=== PATIENT | female | born 1970 | race Caucasian/White ===

== ENCOUNTER 2023-01-22 13:46 | Observation (INO) ==
--- NOTE | 2023-01-22 14:34 | ED Triage Note ---
Date of Service January 22, 2023 History of Present Illness This patient was briefly evaluated while in triage. An abbreviated physical exam was performed. This patient is a 52-year-old Female who presents to the ED for evaluation of hysterectomy on 01/09 - [facility] developed vaginal bleeding with clots in the shower this AM told to come here by surgeon cramping vaginal hysterectomy-ovaries/cervix taken as well nothing vaginally, no intercourse Physical Exam GENERAL: NAD CARDIOVASCULAR: RRR RESPIRATORY: CTA ABDOMEN: BS x 4. Nontender to palpation. Initial orders for labs and / or imaging were placed and patient was placed in the waiting area until a bed is available. Please see further documentation for the full ED course.
[2023-01-22 15:41] LABS: Basophils # (auto) 0.04 K/uL (0.00-0.20); Basophils % (auto) 0.3 %; Eosinophils # (auto) 0.39 K/uL (0.00-0.50); Eosinophils % (auto) 2.9 %; Hematocrit (blood only) 37.2 % (37.0-47.0); Hemoglobin 11.6 g/dl (12.0-16.0); Immature Granulocytes # (auto) 0.04 K/uL (0.01-0.20); Immature Granulocytes % (auto) 0.3 %; Lymphocytes # (auto) 1.73 K/uL (1.20-3.40); Lymphocytes % (auto) 12.7 %; Mean Corpuscular Hemoglobin 23.7 pg (25.0-34.0); Mean Corpuscular Hgb Conc 31.2 g/dL (32.0-36.0); Mean Corpuscular Volume 75.9 fL (80.0-100.0); Mean Platelet Volume 11.4 fL (9.4-12.4); Monocytes # (auto) 0.52 K/uL (0.11-0.59); Monocytes % (auto) 3.8 %; Neutrophils # (auto) 10.89 K/uL (1.40-6.50); Platelet Count 314 K/uL (130-400); RDW Coefficient of Variation 16.7 % (11.5-14.5); RDW Standard Deviation 45.3 fL (36.4-46.3); White Blood Count 13.61 K/ul (4.8-10.8)
[2023-01-22 15:55] LABS: Albumin Globulin Ratio 1.4 (0.9-2); Albumin Level 3.9 gm/dl (3.4-5.0); BUN Creatinine Ratio 31.6 (10-20); Bilirubin,Total 0.3 mg/dl (0.2-1.0); Calcium 8.9 mg/dl (8.6-10.3); Creatinine Clr Calc Pharmacy 163.1 ml/min; Est GFR (African American) 123.5 ml/min; Est GFR (Non-African American) 106.6 ml/min; Globulin 2.8 gm/dl (2.5-4.0); Potassium 4.2 mmol/L (3.5-5.1); Total Protein 6.7 gm/dl (6.0-8.3)
[2023-01-22 16:06] LABS: Partial Thromboplastin Time 27.3 Seconds (21.0-31.0); Prothrombin Time 10.6 Seconds (9.0-12.0)
[2023-01-22] MEDS ORDERED: OPTIRAY 320 500ml IV ONE (16:18)
--- NOTE | 2023-01-22 16:43 | CT Scan Report ---
CT OF THE ABDOMEN AND PELVIS WITH CONTRAST CLINICAL HISTORY: vaginal bleeding s/p hysterectomy 2 weeks ago COMPARISON STUDY: CT of the abdomen and pelvis June 04, 2022 and pelvic ultrasound August 17, 2022. TECHNIQUE: Following IV administration of 94 mL of Optiray, axial images of the abdomen and pelvis we re obtained from the lung bases to the proximal femurs. Images were reviewed in the axial, sagittal, and coronal planes. IV contrast was administered without complication. Automated exposure control wa s utilized for the study. A dose lowering technique was utilized adhering to the principles of ALARA . CT DOSE: 1535.53 mGy.cm FINDINGS: No pneumatosis, free air or portal venous gas is present. Hepatic steatosis is noted. The l iver is enlarged. There is no biliary or pancreatic ductal dilatation. Small gallstones within the ga llbladder are present. No evidence for acute cholecystitis. Size of the spleen is at the upper limits of normal. There is a moderate sized hiatal hernia. Adrenal glands, kidneys and pancreas are normal. There is no hydronephrosis. Dilatation of the left renal artery, measuring 1.5 cm is unchanged and C T of June 04, 2022. There are adjacent surgical clips. A small amount of perihepatic fluid is noted. There is also a small amount of fluid within the right paracolic gutter. There is trace perisplenic fluid and a small amount of fluid within the left paracolic gutter. Note is made of a 11 x 7.8 cm hyp erdensity along the vaginal cuff. The vaginal cuff is obscured by this suspected clot. Hyperdensity w ithin the vagina represents hemorrhage. No definite active extravasation is identified on this examin ation. No evidence for a bowel obstruction. There is colonic diverticulosis without evidence for acut e diverticulitis. Small amount of fluid within the umbilical hernia is present. IMPRESSION: Status post hysterectomy. 11 x 7.8 cm hyperdensity adjacent to the vaginal cuff consiste nt with hemorrhage. This obscures the vaginal cuff but the hemorrhage likely arises from the vaginal cuff. Overall, moderate hemoperitoneum within the pelvis and small amount of hemoperitoneum within th e abdomen. Surgical consultation is recommended. ACT 112: Negative or not required by law. Electronically signed by: Emir Cat M.D. 01/22/2023 4:41 PM
--- NOTE | 2023-01-22 16:52 | Emergency Department Note ---
Impression & Plan Vaginal bleeding, Post surgical complication ED Provider Note HISTORY OF PRESENT ILLNESS: Patient is a 52-year-old female presenting with vaginal bleeding. Patient had a hysterectomy on 01/09/2023 at [facility]. She states that she had her 2- week postop visit today in the clinic. While she was showering getting ready to go to her visit, she states that she started having bright red bloody vaginal bleeding and passing large clots while in the shower. She states she has been bleeding through multiple pads an hour over the last few hours. She did feel slightly dizzy earlier but is feeling okay right now. She reports that her pelvis and lower abdomen feels very bloated and full. She is on an aspirin daily but no other anticoagulation. Reports that she has multiple pads on currently and believes she soaked through them again. She denies any chest pain or shortness of breath. Denies any nausea or vomiting. States she been doing well up until today. ROS: as above PHYSICAL EXAM: Constitutional: Patient appears in no acute distress. HENT: Head: Normocephalic and atraumatic. Eyes: EOMI, PERRL Mouth/Throat: Mucous membranes moist. Neck: Trachea midline. Neck supple. Cardiovascular: RRR, No murmurs, rubs or gallops. Intact distal pulses. Pulmonary/Chest: No respiratory distress. Breath sounds clear and equal bilaterally. No wheezes or rales. Abdominal: Abdomen soft, no tenderness, rebound or guarding. Musculoskeletal: No edema, tenderness or deformity noted. Skin: Warm and dry. No rash, erythema, pallor or cyanosis Psychiatric: Appropriate mood and affect for situation. Neurological: Alert and keenly responsive. CN II-XII grossly intact, moving all extremities equally and fully. MDM: - Vitals signs showed hypertension - History obtained via patient. Patient presents with heavy vaginal bleeding. Patient is 2 weeks postop from a total hysterectomy. She was to have her 2-week postop visit today when she started having heavy vaginal bleeding spontaneously in the shower. States that she has been bleeding through multiple pads an hour and passing large clots. She is on aspirin daily. - Chronic conditions affecting care: HTN; depression/anxiety - Differential diagnoses include, but are not limited to: [] - Order placed for continuous cardiac monitoring. At this time, monitor showed rate of 90 bpm with normal sinus rhythm, per my interpretation. - External medical records reviewed. Showed [EMS sheet, outpt notes, outpt imaging] - Laboratory workup interpreted by myself showed slight leukocytosis (WBC 13.61); slight anemia (Hgb 11/6); stable electrolytes - CT abdomen/pelvis with IV contrast showed 11 x 7.8 cm hyperdensity adjacent to the vaginal cuff consistent with hemorrhage. Concern for hemorrhage arising from the vaginal cuff. Moderate hemoperitoneum within the pelvis. - Discussed case with [facility] historic preservationist, Dr. Burroughs at 17:01. He is coming to see the patient currently. He did an evaluation and thinks that the bleeding has stopped. Plans to admit for repeat H&H and further monitoring - Patient admitted to OB service for further evaluation and management. ASSESSMENT AND PLAN: Diagnosis: Vaginal bleeding; post surgical complication Plan: Admit Past Med/Surg History Medical History (Updated 01/22/23 @ 18:17 by Mindi Pereira MD) Hx of gastric ulcer Irritable bowel syndrome diarrhea History of COVID-19 01/2021 > symptoms at time: fatigue, cough, aches > resolved Herpes genitalia Umbilical hernia Osteoarthritis Chronic back pain GERD (gastroesophageal reflux disease) Anxiety Depression Postconcussion syndrome 2018 > Post-concussive syndrome with persistent difficulty with executive function > follows with [facility] neurology (last seen 03/13/21) Migraine Hypertension Restless legs syndrome Fibromuscular dysplasia of renal artery Surgical History (Updated 10/02/22 @ 12:21 by Yesica Hinds MD) S/P laparoscopic procedure x2 - reports laparoscopy for endo by Dr. Kovacs in , dx laparoscopy 09/2022 History of esophagogastroduodenoscopy (EGD) S/P endometrial ablation S/P wisdom tooth extraction Hx of colonoscopy History of bilateral tubal ligation History of section x3 1995,2002,2003 History of cystoscopy S/P renal artery angioplasty right History of kidney surgery renal artery bypass (left) 2000 History of tonsillectomy S/P total knee arthroplasty bilateral S/P dilatation and curettage Family History Mother Diabetes Anxiety Hypertension Deep vein thrombosis Father Hypertension Grandmother (Paternal) Colorectal cancer Other No family history of adverse response to anesthesia Denies family history of Ovarian cancer Breast cancer Uterine cancer Social History Smoking Status: Current every day smoker Tobacco Type: E-cigarettes / Vaping Second Hand Exposure: No; Do You Dip or Chew Tobacco: No; Hx Alcohol Use: Yes Alcohol type: wine Alcohol Intake Frequency Comment: socially Hx Substance Use: No Preferred Language: Puerto Rican Communication Ability: Effective Visual Impairment: No Limitations Heel Burnisher Required: No Beliefs That Will Affect Care: None marital status: Current Living Situation: Family current occupational status: employed How many Children do You have: 3 Feels Safe at Home: Yes during the past year weight has: increased > 10 lbs Assistive Devices: Glasses Allergies Allergies Allergy/AdvReac Type Severity Reaction Status Date / Time No Known Allergies Allergy Verified 01/22/23 17:35 Home Meds Home Medications Medication Instructions Recorded Confirmed aspirin 81 mg tablet,delayed 81 mg PO DAILY 12/14/22 01/22/23 release ibuprofen 200 mg tablet 600 mg PO DIRECTED PRN Pain 01/22/23 01/22/23 Previous Rx's Medication Instructions Recorded multivitamin (Multiple Vitamins 1 tab PO DAILY #30 tabs 07/31/18 tablet) furosemide 20 mg tablet (Lasix) 20 mg PO BID PRN edema #180 tabs 10/27/20 methocarbamol 500 mg tablet 500 mg PO BID PRN pain 30 days #60 08/14/21 tabs ferrous sulfate 325 mg (65 mg 325 mg PO DAILY #90 tabs 11/27/21 iron) tablet (iron) potassium chloride 8 mEq 8 meq PO QAM #90 tabs 11/27/21 tablet,extended release (Klor-Con) dextroamphetamine-amphetamine ER 20 mg PO DAILY #30 caps 02/27/22 20 mg 24hr capsule,extend release (Adderall XR) omeprazole 40 mg capsule,delayed 40 mg PO HS #30 caps 06/25/22 release valsartan 160 1 tab PO QAM #90 tabs 09/24/22 mg-hydrochlorothiazide 25 mg tablet escitalopram oxalate 10 mg tablet 10 mg PO QAM #90 tabs 09/25/22 (Lexapro) ondansetron HCl 4 mg tablet 4 mg PO Q8H PRN ibs #20 tabs 12/14/22 pramipexole 0.5 mg tablet 0.5 mg PO TID #90 tabs 12/17/22 bupropion HCl 300 mg 24 hr tablet, 300 mg PO QAM #30 tabs 01/09/23 extended release (Wellbutrin XL) clonazepam 1 mg tablet (Klonopin) 1 mg PO TID #90 tabs 01/13/23 hydrocodone 5 mg-acetaminophen 325 1 tab PO Q6H PRN pain #120 tabs 01/21/23 mg tablet Results & Data (ED) Vital Signs Vital Signs - 24 hr 01/22/23 14:32 01/22/23 15:35 Temperature 36.8 C Temperature Source Temporal Artery Scan Pulse Rate 88 Pulse Rate [Right Finger] 88 Respiratory Rate 18 16 Respiratory Effort / Characteristics Non-Labored Spontaneous Non-Labored Respiratory Depth Normal Normal Respiratory Pattern Regular Blood Pressure 193/120 H Blood Pressure [Left Radial Artery] 150/90 H Blood Pressure Mean 144 Blood Pressure Mean [Left Radial Artery] 110 Blood Pressure Position Sitting Pulse Oximetry 97 94 Oxygen Delivery Method Room Air Room Air Sepsis Recent Fever Within 48 Hours No Sepsis New/Unexplained Change in Mental Status No Sepsis Action Taken by Nursing No Action Required Laboratory Data 01/22/23 15:08 01/22/23 15:08 Lab Results 01/22/23 01/22/23 Range/Units 15:08 15:09 WBC 13.61 H (4.8-10.8) K/ul RBC 4.90 (4.20-5.40) M/uL Hgb 11.6 L (12.0-16.0) g/dl Hct 37.2 (37.0-47.0) % MCV 75.9 L (80.0-100.0) fL MCH 23.7 L (25.0-34.0) pg MCHC 31.2 L (32.0-36.0) g/dL RDW Std Deviation 45.3 (36.4-46.3) fL RDW Coeff of Ravi 16.7 H (11.5-14.5) % Plt Count 314 (130-400) K/uL MPV 11.4 (9.4-12.4) fL Immature Gran % (Auto) 0.3 % Neut % (Auto) 80.0 % Lymph % (Auto) 12.7 % [place] % (Auto) 3.8 % Eos % (Auto) 2.9 % Baso % (Auto) 0.3 % Neut # (Auto) 10.89 H (1.40-6.50) K/uL Lymph # (Auto) 1.73 (1.20-3.40) K/uL [place] # (Auto) 0.52 (0.11-0.59) K/uL Eos # (Auto) 0.39 (0.00-0.50) K/uL Baso # (Auto) 0.04 (0.00-0.20) K/uL Immature Gran # (Auto) 0.04 (0.01-0.20) K/uL PT 10.6 (9.0-12.0) Seconds INR 1.0 (0.9-1.1) APTT 27.3 (21.0-31.0) Seconds PTT Ratio 1.0 Sodium 139 (136-145) mmol/L Potassium 4.2 (3.5-5.1) mmol/L Chloride 107 (98-107) mmol/L Carbon Dioxide 25 (21-32) mmol/L Anion Gap 7 (3-11) BUN 18 (6-23) mg/dl Creatinine 0.57 L (0.6-1.2) mg/dl Est Cr Clr Drug Dosing 163.1 ml/min Est GFR ( Amer) 123.5 ml/min Est GFR (Non-Af Amer) 106.6 ml/min BUN/Creatinine Ratio 31.6 H (10-20) Glucose 100 H (70-99(Fasting)) mg/dl Calcium 8.9 (8.6-10.3) mg/dl Total Bilirubin 0.3 (0.2-1.0) mg/dl AST 14 (13-39) U/L ALT 15 (7-52) U/L Alkaline Phosphatase 64 (34-104) U/L Total Protein 6.7 (6.0-8.3) gm/dl Albumin 3.9 (3.4-5.0) gm/dl Globulin 2.8 (2.5-4.0) gm/dl Albumin/Globulin Ratio 1.4 (0.9-2) Blood Type A Positive Antibody Screen NEGATIVE Administered Medications Discontinued Medications Ioversol (Optiray 320 500ml) 94 ml IV ONCE ONE Stop: 01/22/23 16:19 Last Admin: 01/22/23 16:19 Dose: 94 ml Documented By: EMELY Imaging Data Radiologist's Impression: Abdomen/Pelvis CT 01/22/23 14:34 CT OF THE ABDOMEN AND PELVIS WITH CONTRAST CLINICAL HISTORY: vaginal bleeding s/p hysterectomy 2 weeks ago COMPARISON STUDY: CT of the abdomen and pelvis June 04, 2022 and pelvic ultrasound August 17, 2022. TECHNIQUE: Following IV administration of 94 mL of Optiray, axial images of the abdomen and pelvis were obtained from the lung bases to the proximal femurs. Images were reviewed in the axial, sagittal, and coronal planes. IV contrast was administered without complication. Automated exposure control was utilized for the study. A dose lowering technique was utilized adhering to the principles of ALARA. CT DOSE: 1535.53 mGy.cm FINDINGS: No pneumatosis, free air or portal venous gas is present. Hepatic steatosis is noted. The liver is enlarged. There is no biliary or pancreatic ductal dilatation. Small gallstones within the gallbladder are present. No evidence for acute cholecystitis. Size of the spleen is at the upper limits of normal. There is a moderate sized hiatal hernia. Adrenal glands, kidneys and pancreas are normal. There is no hydronephrosis. Dilatation of the left renal artery, measuring 1.5 cm is unchanged and CT of June 04, 2022. There are adjacent surgical clips. A small amount of perihepatic fluid is noted. There is also a small amount of fluid within the right paracolic gutter. There is trace perisplenic fluid and a small amount of fluid within the left paracolic gutter. Note is made of a 11 x 7.8 cm hyperdensity along the vaginal cuff. The vaginal cuff is obscured by this suspected clot. Hyperdensity within the vagina represents hemorrhage. No definite active extravasation is identified on this examination. No evidence for a bowel obstruction. There is colonic diverticulosis without evidence for acute diverticulitis. Small amount of fluid within the umbilical hernia is present. IMPRESSION: Status post hysterectomy. 11 x 7.8 cm hyperdensity adjacent to the vaginal cuff consistent with hemorrhage. This obscures the vaginal cuff but the hemorrhage likely arises from the vaginal cuff. Overall, moderate hemoperitoneum within the pelvis and small amount of hemoperitoneum within the abdomen. Surgical consultation is recommended. ACT 112: Negative or not required by law. Electronically signed by: Emir Cat M.D. 01/22/2023 4:41 PM Discharge Plan Visit Data Chief Complaint: Vaginal Bleeding Stated Complaint: HISTARECTAMI, BLOOD CLOTTING ED Provider: Mindi Pereira Discharge Problem: Vaginal bleeding, Post surgical complication Forms Stand Alone Forms: [facility] [employer] Prescriptions Prescriptions: No Action multivitamin [Multiple Vitamins] tablet 1 tab PO DAILY Qty: 30 0RF methocarbamol 500 mg tablet 500 mg PO BID PRN (Reason: pain) 30 Days Qty: 60 3RF ferrous sulfate [iron] 325 mg (65 mg iron) tablet 325 mg PO DAILY Qty: 90 1RF potassium chloride [Klor-Con 8] 8 mEq tablet extended release 8 meq PO QAM Qty: 90 1RF dextroamphetamine-amphetamine [Adderall XR] 20 mg capsule,extended release 24hr 20 mg PO DAILY Qty: 30 0RF omeprazole 40 mg capsule,delayed release(DR/EC) 40 mg PO HS Qty: 30 5RF valsartan-hydrochlorothiazide 160-25 mg tablet 1 tab PO QAM Qty: 90 0RF escitalopram oxalate [Lexapro] 10 mg tablet 10 mg PO QAM Qty: 90 1RF pramipexole 0.5 mg tablet 0.5 mg PO TID Qty: 90 2RF bupropion HCl [Wellbutrin XL] 300 mg tablet extended release 24 hr 300 mg PO QAM Qty: 30 1RF clonazepam [Klonopin] 1 mg tablet 1 mg PO TID Qty: 90 0RF hydrocodone-acetaminophen 5-325 mg tablet 1 tab PO Q6H PRN (Reason: pain) Qty: 120 0RF Rx Instructions: ok to fill on 12/21/22 furosemide [Lasix] 20 mg tablet 20 mg PO BID PRN (Reason: edema) Qty: 180 0RF aspirin 81 mg tablet,delayed release (DR/EC) 81 mg PO DAILY ondansetron HCl 4 mg tablet 4 mg PO Q8H PRN (Reason: ibs) Qty: 20 0RF ibuprofen 200 mg Tablet 600 mg PO DIRECTED PRN (Reason: Pain) Referrals Referrals: Kartik Jordan DO [Primary Care Provider] -
[2023-01-22 18:48] LABS: Appearance Urine Clear (Clear); Bacteria Urine Automated Negative (Negative); Bilirubin Urine Negative (Negative); Blood Urine Trace (Negative); Color Urine Yellow; Glucose Urine UA Negative (Negative); Ketones Urine Negative (Negative); Leukocyte Esterase Urine Negative (Negative); Nitrite Urine Negative (Negative); Protein Urine Negative (Negative); Specific Gravity Urine > 1.045 (1.000-1.030); Urobilinogen Urine Negative (Negative)
[2023-01-22] MEDS ORDERED: HYDROCODONE/ACETAMOPHEN 5/325MG TAB PO PRN (21:12)
[2023-01-22] MEDS ORDERED: FUROSEMIDE 20 MG TAB PO PRN (21:12)
[2023-01-22] MEDS ORDERED: PANTOprazole 40 MG TAB PO SCH (21:30)
[2023-01-22 21:36] LABS: Hematocrit (blood only) 34.1 % (37.0-47.0); Hemoglobin 10.5 g/dl (12.0-16.0); Mean Corpuscular Hemoglobin 24.1 pg (25.0-34.0); Mean Corpuscular Hgb Conc 30.8 g/dL (32.0-36.0); Mean Corpuscular Volume 78.2 fL (80.0-100.0); Mean Platelet Volume 11.2 fL (9.4-12.4); Platelet Count 286 K/uL (130-400); RDW Coefficient of Variation 16.6 % (11.5-14.5); RDW Standard Deviation 46.7 fL (36.4-46.3); Red Blood Count 4.36 M/uL (4.20-5.40); White Blood Count 11.16 K/ul (4.8-10.8)
[2023-01-22] MEDS ORDERED: POLYETHYLENE (MIRALAX) 17 GM PACK PO PRN (21:55)
--- OUTSIDE RECORDS SUMMARY | 2023-01-22 21:55 | External Medical Summary | Summary of Care ---
Author Name Unknown Organization [facility] Address [address] [place] [address] Phone [phone] Care Team Providers Care Manager Fitness Name Role Phone Kartik Jordan Primary Care Provider [phone] Reason for Visit * Reason Comments Outpatient Testing Encounter Details Date Type Department Care Team ([facility] st Contact Info) Description 01/07/2023 3:50 PM EST Laboratory Laboratory, [place] [address] [place] [address] [id number] Hemorrhage in uterus*; Other specified pre-operative examination Allergies No known active allergiesdocumented as of this encounter (statuses as of 01/07/2023) Medications Medication Sig Dispensed Refills Start Date End Date Status famotidine (PEPCID) 20 MG Tablet 20 mg 2 times a day. 0 Active Multiple Vitamins TABS Take by mouth daily. 0 Active ferrous sulfate (FEOSOL) 325 (65 FE) MG Tablet Take 1 Tab by mouth daily. Do not get the generic or delayed release tablets 0 09/10/2016 Active traZODone (DESYREL) 50 MG TabletIndications:Marilou ariella insomnia Take 1 Tab by mouth at bedtime. 30 Tab 3 09/14/2016 Active buPROPion XL (WELLBUTRIN XL) 300 MG [id number]:Recur rent major depressive disorder, in full remission (HCC) Take 1 Tab by mouth daily. 90 Tab 1 02/05/2017 Active Valsartan-Hydrochloro thiazide 160-25 MG per tablet Take 1 Tab by mouth daily. 90 Tab 1 02/05/2017 Active clonazePAM (KLONOPIN) 1 MG Tablet TAKE 1 TABLET, BY MOUTH, THREE TIMES DAILY NEEDED FOR ANXIETY. 30 Tab 0 03/11/2017 Active Meloxicam 7.5 MG Tablet Take one tablet by mouth daily with food. Start after 14 day supply of 15 mg is completed. 30 Tab 1 03/28/2017 Active Aspirin 81 MG Tablet Take 81 mg by mouth daily. 0 Active Diclofenac Sodium (VOLTAREN) 1 % gel Place 4 g topically on the skin 4 times a day. 3 Tube 3 04/30/2018 Active Omeprazole 40 MG Oral Capsule Delayed Release (PriLOSEC) TAKE 1 TABLET BY MOUTH AT BEDTIME 30 Capsule 0 02/26/2022 Active Amphetamine-Dextroamp het ER 20 MG Oral Capsule Extended Release 24 Hour (Adderall XR) take 1 capsule by mouth once daily 30 Capsule 0 02/27/2022 Active Diclofenac Potassium 50 MG Oral Tablet 50 mg orally twice a day 60 Tablet 0 03/02/2022 Active Topiramate 25 MG Oral Capsule Sprinkle (topAMAX SPRINKLE) take 1 capsule twice a day 60 Capsule 3 03/06/2022 Active Omeprazole 40 MG Oral Capsule Delayed Release (PriLOSEC) TAKE 1 CAPSULE BY MOUTH DAILY AT BEDTIME. 30 Capsule 5 03/26/2022 Active Pramipexole Dihydrochloride 0.5 MG Oral Tablet (Mirapex) 0.5 MG (1 tablet) by mouth three times a day 90 Tablet 2 03/26/2022 Active Pramipexole Dihydrochloride 0.5 MG Oral Tablet (Mirapex) Take 0.5 MG (1 tablet) by mouth three times a day 90 Tablet 2 04/27/2022 Active Azithromycin 250 MG Oral Tablet (Zithromax) TAKE 2 TABLETS BY MOUTH ON DAY 1 ( 500 MG ) THEN 1 TABLET ( 250 MG ) DAILY FOR 4 DAYS 6 Tablet 0 05/08/2022 Active Valsartan-hydroCHLORO thiazide 160-25 MG Oral Tablet Take 1 TAB by mouth daily in the morning 90 Tablet 0 05/26/2022 Active buPROPion HCl ER (XL) 300 MG Oral Tablet Extended Release 24 Hour (Wellbutrin XL) Take 1 tablet orally daily in the morning 30 Tablet 0 06/25/2022 Active Omeprazole 40 MG Oral Capsule Delayed Release (PriLOSEC) Take 1 capsule by [facility] at bedtime. 30 Capsule 5 06/25/2022 Active Pramipexole Dihydrochloride 0.5 MG Oral Tablet (Mirapex) Take 1 tablet by mouth three times a day 90 Tablet 2 06/25/2022 Active oxyCODONE HCl 5 MG Oral Tablet (Oxy IR) Take 1 tablet by mouth every 6 hours as needed for pain. 10 Tablet 0 09/17/2022 Active Pramipexole Dihydrochloride 0.5 MG Oral Tablet (Mirapex) 0.5 MG (1 tablet) orally three times a day 90 Tablet 2 09/20/2022 Active buPROPion HCl ER (XL) 300 MG Oral Tablet Extended Release 24 Hour (Wellbutrin XL) Take 1 tablet orally daily in the morning 30 Tablet 1 09/24/2022 Active Valsartan-hydroCHLORO thiazide 160-25 MG Oral Tablet Take 1 tablet orally daily in the morning 90 Tablet 0 09/24/2022 Active clonazePAM 1 MG Oral Tablet (KlonoPIN) Take 1 tablet orally three times a day 60 Tablet 1 09/24/2022 Active Escitalopram Oxalate 10 MG Oral Tablet (Lexapro) TAKE 1 TABLET BY MOUTH DAILY IN THE MORNING. 90 Tablet 1 09/25/2022 Active Nitrofurantoin Monohyd Macro 100 MG Oral Capsule (Macrobid) 100 mg (1 capsule) orally twice a day must administer with a meal/food 14 Capsule 0 10/31/2022 Active clonazePAM 1 MG Oral Tablet (KlonoPIN) TAKE 1 TABLET BY MOUTH THREE TIMES DAILY. 10 Tablet 0 12/04/2022 Active Ondansetron HCl 4 MG Oral Tablet (Zofran) Take 4 mg orally every 8 hours As Needed for ibs 20 Tablet 0 12/14/2022 Active clonazePAM 1 MG Oral Tablet (KlonoPIN) Take 1 tablet by mouth three times a day 90 Tablet 0 12/14/2022 Active HYDROcodone-Acetamino phen 5-325 MG Oral Tablet Take 1 tablet by mouth every 6 hours As Needed for pain; ok to fill on 12/21/22 120 Tablet 0 12/14/2022 Active Pramipexole Dihydrochloride 0.5 MG Oral Tablet (Mirapex) TAKE 1 TABLET BY MOUTH 3 TIMES A DAY 90 Tablet 2 12/17/2022 Active documented as of this encounter (statuses as of 01/07/2023) Active Problems Problem Noted Date Diagnosed Date Uterine bleeding 01/07/2023 Status post total bilateral knee replacement 03/2016 Anxiety 09/15/2016 Recurrent major depressive disorder, in full rem ission 09/15/2016 HTN, goal below 140/90 09/15/2016 Primary insomnia 09/15/2016 Primary osteoarthritis of left knee 09/15/2016 Hyperlipidemia with target LDL less than 130 S/P renal artery angioplasty 09/02/2002 documented as of this encounter (statuses as of 01/07/2023) Resolved Problems Problem Noted Date Diagnosed Date Resolved Date Encounter for supervision of other normal 04/28/2003 05/18/2003 Overview: ICD-10 update of inactive term Supervision of other high-risk 03/23/2003 08/04/2003 Overview: ICD-10 update of inactive term Encounter for supervision of other normal 08/18/2002 10/01/2002 Overview: ICD-10 update of inactive term documented as of this encounter (statuses as of 01/07/2023) Immunizations Name Administration Dates Next Due Seasonal Influenza, Quadrivalent, No Preserve, I M 02/21/2017 Seasonal Influenza, Split, IIV3, With Preserve, Inj 01/23/2016,01/10/2015 documented as of this encounter Social History Tobacco Use Types Packs/Day Years Used Date Smoking Tobacco: Former Smokeless Tobacco: Never Comments:quit 2001 Alcohol Use Standard Drinks/Week Comments Yes 0 (1 standard drink = 0.6 oz pur e alcohol) occasionally Sex and Gender Information Value Date Recorded Sex Assigned at Not on file Gender Identity Not on file Sexual Orientation Not on file Job Start Date Occupation Industry Not on file Not on file Not on file documented as of this encounter Functional Status Functional Status Response Date of Assess ment Are you deaf or do you have serious difficulty h earing? No 11/13/2016 Are you blind or do you have serious difficulty seeing, even when wearing glasses? No 11/13/2016 Do you have serious difficul ty walking or climbing stairs? (5 years old or older) No 11/13/2016 Do you have difficulty dress ing or bathing? (5 years old or older) No 11/13/2016 Because of a physical, menta l, or emotional condition, do you have difficulty doing errands alone such as visiting a doctor s office or shopping? (15 years old or older) No 11/14/19 17 Cognitive Status Response Date of Assessm ent Because of a physical, menta l, or emotional condition, do you have serious difficulty concentrating, remembering, or making decisions? (5 years old or older) No 11/13/2016 documented as of this encounter Plan of Treatment Pending Results Name Type Priority Associated Diagnoses Date /Time TYPE AND SCREEN Lab Routine Hemorrhage in uterus Other specified pre-operative examination 01/07/2023 4:11 PM EST CBC Lab Routine Hemorrhage in uterus Other specified pre-operative examination 01/07/2023 4:11 PM EST COMPREHENSIVE METABOLIC PANEL Lab Routine Hemorrhage in uterus Other specified pre-operative examination 01/07/2023 4:11 PM EST BETA-HCG, QUANTITATIVE Lab Routine Hemorrhage in uterus Other specified pre-operative examination 01/07/2023 4:11 PM EST Scheduled Orders Name Type Priority Associated Diagnoses Orde r Schedule TYPE AND SCREEN Lab Routine Hemorrhage in uterus Other specified pre-operative examination Expected: 01/07/2023, Expires: 01/08/2024 CBC Lab Routine Hemorrhage in uterus Other specified pre-operative examination Expected: 01/07/2023, Expires: 01/08/2024 COMPREHENSIVE METABOLIC PANEL Lab Routine Hemorrhage in uterus Other specified pre-operative examination Expected: 01/07/2023, Expires: 01/08/2024 BETA-HCG, QUANTITATIVE Lab Routine Hemorrhage in uterus Other specified pre-operative examination Expected: 01/07/2023, Expires: 01/08/2024 Health Maintenance Due Date Last Done Comments Hepatitis B (1 of 3 - 3-dose series) 1970 COVID-19 Vaccine (#1) 06/30/1971 HIV Screening 1985 Albumin/Creatinine Ratio 1988 DTaP,Tdap,and Td Vaccines (1 - Tdap) 1989 HPV/Co-Test 2000 Cervical Cancer Screening 05/17/2006 Pap Smear 05/17/2006 05/18/2003 Mammogram 2010 Cologuard 12/31/2015 Colonoscopy 12/31/2015 Colorectal Cancer Screening 12/31/2015 Fecal Occult Blood Test 12/31/2015 Sigmoidoscopy 12/31/2015 Depression Screening 10/26/2017 10/26/2016 GFR 11/13/2017 11/13/2016, 09/26, 03/26/2015, Additional history exists Lipid Panel 01/05/2020 01/04/2015 Zoster Vaccines (1 of 2) 2020 Influenza Vaccine (FLU shot) (#1) 2022 02/21/2017, 01/23/2016, 01/10/2015 Hepatitis C Screening Completed 02/23/2003, 003 GARDASIL-HPV IMMUNIZATION SERIES Aged Out No longer eligible based on patient's age to complete this topic MENINGOCOCCAL (MENACTRA/MENVEO) Aged Out No longer eligible based on patient's age to complete this topic Pneumococcal Vaccine: Pediatrics (0 to 5 Years) and At-Risk Patients (6 to 64 Years) Aged Out No longer eligible based on patient's age to complete this topic documented as of this encounter Medical Devices Implanted Type Area Fabric Worker Fitter Device Identifier Shelf Expiration Date Model / Serial / Lot Cement Bone R 1112-140-01 - [id number] Implanted:Qty: 1 on 03/29/2015 by Laci Crystal MD at OR [facility] Right: Knee [employer] 06/25/2019 00-1112-14 0-01 / / Knee Triathlon Ps Stb Bead 4 L - [id number] Implanted:Qty: 1 on 11/13/2016 by Laci Crystal MD at OR [facility] Left: Knee SUSAN : ORTHOPAEDICS 11/22/2019 5516-F-401 / / [id number] Description:TRIATHLON ENROLLMENT SPECIALIST IOR STABILIZED FEMORAL; SIZE- 4, SIDE-LEFT, TYPE-PS documented as of this encounter Visit Diagnoses Diagnosis Hemorrhage in uterus- Primary Hematometra Other specified pre-operative examination documented in this encounter Advance Directives Latest Code Status on File Code Status Date Activated Date Inactivated Comments Full Code 11/13/2016 10:45 AM 11/15/2016 3:02 PM . Question Answer Comments Discussion of Advance Direct tiana occurred with: Not Discussed Code Status History Code Status Date Activated Date Inactivated Comments Full Code 03/29/2015 10:14 AM 03/31/2015 6:07 PM . Question Answer Comments Discussion of Advance Direct tiana occurred with: Not Discussed Care Teams Manager Fitness Relationship Specialty Start Date End Date Kartik Jordan DO PCP - General Family Medicine 07/01/17 documented as of this encounter
--- OUTSIDE RECORDS SUMMARY | 2023-01-22 21:55 | External Medical Summary | Summary of Care ---
Author Name Unknown Organization [facility] Address [address] [place] [address] Phone [phone] Care Team Providers Care Dining Room Maid Name Role Phone JulianKartik diego Primary Care Provider [phone] Encounter Details Date Type Department Care Team (Latest Contact Info) Description 01/07/2023 3:50 PM EST - 01/07/2023 11:59 PM EST Hospital Encounter [facility], [address] [place] [address] Arrived Discharge Disposition: Home - Self Care Allergies No known active allergiesdocumented as of this encounter (statuses as of 01/08/2023) Medications Medication Sig Dispensed Refills Start Date [...] Active buPROPion XL (WELLBUTRIN XL) 300 MG [id number]:Recur rent major depressive disorder, in full remission [...] Delayed Release (PriLOSEC) Take 1 capsule by [facility] at bedtime. 30 Capsule 5 06/25/2022 Active [...] as of this encounter (statuses as of 01/08/2023) Active Problems Problem Noted Date Diagnosed Date Uterine bleeding 01/07/2023 Status post total bilateral knee replacement 03/2016 Anxiety 09/15/2016 Recurrent major depressive disorder, in full rem ission 09/15/2016 HTN, goal below 140/90 09/15/2016 Primary insomnia 09/15/2016 Primary osteoarthritis of left knee 09/15/2016 Hyperlipidemia with target LDL less than 130 S/P renal artery angioplasty 09/02/2002 documented as of this encounter (statuses as of 01/08/2023) Resolved Problems Problem Noted Date Diagnosed Date Resolved Date Encounter for supervision of other normal 04/28/2003 05/18/2003 Overview: ICD-10 update of inactive term Supervision of other high-risk 03/23/2003 08/04/2003 Overview: ICD-10 update of inactive term Encounter for supervision of other normal 08/18/2002 10/01/2002 Overview: ICD-10 update of inactive term documented as of this encounter (statuses as of 01/08/2023) Immunizations Name Administration Dates Next Due Seasonal [...] as of this encounter Plan of Treatment Health Maintenance Due Date Last Done Comments [...] 12/31/2015 Sigmoidoscopy 12/31/2015 Depression Screening 10/26/2017 10/26/2016 Lipid Panel 01/05/2020 01/04/2015 Zoster Vaccines (1 of 2) 2020 Influenza Vaccine (FLU shot) (#1) 2022 02/21/2017, 01/23/2016, 01/10/2015 GFR 01/08/2024 01/07/2023, 10/26, 10/17/2016, Additional history exists Hepatitis C Screening Completed 02/23/2003, 003 GARDASIL-HPV [...] this encounter Medical Devices Implanted Type Area Metal Ceiling Hanger Device Identifier Shelf Expiration Date Model / Serial / Lot Cement Bone R 1112-140-01 - [id number] Implanted:Qty: 1 on 03/29/2015 by Laci Crystal MD at OR [facility] Right: Knee [employer] 06/25/2019 00-1112-14 0-01 / / Knee Triathlon Ps Stb Bead 4 L - [id number] Implanted:Qty: 1 on 11/13/2016 by Laci Crystal MD at OR [facility] Left: Knee SUSAN : ORTHOPAEDICS 11/22/2019 5516-F-401 / / [id number] Description:TRIATHLON ALTERATIONS EXPERT IOR STABILIZED FEMORAL; SIZE- 4, SIDE-LEFT, TYPE-PS documented as of this encounter Procedures Procedure Name Priority Date/Time Associated Diagnosis Comments XR CHEST 2 VIEWS Routine 01/07/2023 4:13 PM EST Uterine bleeding documented in this encounter Results * XR CHEST 2 VIEWS (01/07/2023 4:13 PM EST) Anatomical Region Laterality Modality Chest Computed Radiogr aphy 01/07/2023 4:21 PM EST Impressions 01/07/2023 4:19 PM EST IMPRESSION Mild linear atelectasis or scarring predominantly left lower lung field i.e. lingula. Otherwise, no acute disease in chest. Narrative 01/07/2023 4:19 PM EST EXAM XR CHEST 2 VIEWS-01/07/2023 4:13 pm HISTORY abnormal uterine bleeding COMPARISON Chest single view dated 10/17/2016; chest two views dated 03/18/2015; chest two views dated 02/21/2015 TECHNIQUE PA/lateral FINDINGS Lungs are well-expanded with mild partial elevation/eventration anterior right hemidiaphragm incidentally noted. There is no pneumothorax or pleural effusion. There is no focal parenchymal consolidation or pulmonary vascular congestion. Mild linear atelectasis or scarring is seen predominantly left lower lung field thought lingula. There is no pulmonary vascular congestion. Small predominantly perihilar nodular densities again seen likely vascular structures on end. Radiographic appearance cardiomediastinal silhouette and visualized osseous thorax stable. There is osseous degenerative change. Procedure Note Rashad Blanco MD - 01/07/2023 EXAM XR CHEST 2 VIEWS-01/07/2023 4:13 pm HISTORY abnormal uterine bleeding COMPARISON Chest single view dated 10/17/2016; chest two views dated 03/18/2015;chest two views dated 02/21/2015 TECHNIQUE PA/lateral FINDINGS Lungs are well-expanded with mild partial elevation/eventration anteriorright hemidiaphragm incidentally noted. There is no pneumothorax orpleural effusion. There is no focal parenchymal consolidation or pulmonary vascularcongestion. Mild linear atelectasis or scarring is seen predominantlyleft lower lung field thought lingula. There is no pulmonary vascularcongestion. Small predominantly perihilar nodular densities again seenlikely vascular structures on end. Radiographic appearance cardiomediastinal silhouette and visualizedosseous thorax stable. There is osseous degenerative change. IMPRESSION IMPRESSION Mild linear atelectasis or scarring predominantly left lower lung fieldi.e. lingula. Otherwise, no acute disease in chest. Jose L Fine MD RADIOLOGY ([facility]) documented in this encounter Advance Directives Latest [...] tiana occurred with: Not Discussed Care Teams Dining Room Maid Relationship Specialty Start Date End Date Kartik Jordan DO PCP - General Family Medicine 07/01/17 documented as of this encounter
--- OUTSIDE RECORDS SUMMARY | 2023-01-22 21:55 | External Medical Summary ---
Author Name Unknown Address Unknown Organization [id number][place] [place] [address] [place] [address] Laboratory Report Ordering Provider Test Date Status SHWETA REGALADO 01/07/2023 16:11:59 Final Observation Date Value Abnormality Reference (Units ) Status WBC, Total 01/07/2023 16:11:59 7.84 4.00-10.80 (K/uL) Final RBC 01/07/2023 16:11:59 5.15 3.85-5.15 (M/uL) Final Hemoglobin 01/07/2023 16:11:59 12.3 12.0-15.3 (g/dL) Final HCT 01/07/2023 16:11:59 42.7 36.0-45.2 (%) Final MCV 01/07/2023 16:11:59 82.9 81.5-97.5 (fL) Final MCH 01/07/2023 16:11:59 23.9 27.0-34.0 (pg) Final MCHC 01/07/2023 16:11:59 28.8 32.0-36.0 (g/dL) Final RDW 01/07/2023 16:11:59 16.6 11.5-15.5 (%) Final Platelets 01/07/2023 16:11:59 264 140-400 (K/uL) Final MPV 01/07/2023 16:11:59 12.0 6.6-11.1 (fL) Final Nucleated erythrocytes/100 leukocytes [Ratio] in Blood by Automated count 01/07/2023 16:11:59 0 <=0 (/100 WBCs) Final Performing Location [facility] [place] [address] [place] [address]
--- OUTSIDE RECORDS SUMMARY | 2023-01-22 21:55 | External Medical Summary | Summary of Care ---
Author Name Unknown Organization [facility] Address [address] [place] [address] Phone [phone] Care Team Providers Care Moss Gatherer Name Role Phone Kartik Jordan Primary Care Provider [phone] Reason for Visit * Reason Comments Outpatient Testing Encounter Details Date Type Department Care Team ([facility] st Contact Info) Description 01/07/2023 3:50 PM EST Laboratory Laboratory, [place] [address] [place] [address] [id number] Hemorrhage in uterus*; Other specified pre-operative examination [...] Active buPROPion XL (WELLBUTRIN XL) 300 MG [id number]:Recur rent major depressive disorder, in full remission [...] Delayed Release (PriLOSEC) Take 1 capsule by [facility] at bedtime. 30 Capsule 5 06/25/2022 Active [...] this encounter Medical Devices Implanted Type Area Morals Squad Police Officer Device Identifier Shelf Expiration Date Model / Serial / Lot Cement Bone R 1112-140-01 - [id number] Implanted:Qty: 1 on 03/29/2015 by Laci Crystal MD at OR [facility] Right: Knee [employer] 06/25/2019 00-1112-14 0-01 / / Knee Triathlon Ps Stb Bead 4 L - [id number] Implanted:Qty: 1 on 11/13/2016 by Laci Crystal MD at OR [facility] Left: Knee SUSAN : ORTHOPAEDICS 11/22/2019 5516-F-401 / / [id number] Description:TRIATHLON SET UP PERSON IOR STABILIZED FEMORAL; SIZE- 4, SIDE-LEFT, TYPE-PS [...] tiana occurred with: Not Discussed Care Teams Moss Gatherer Relationship Specialty Start Date End Date Kartik Jordan DO PCP - General Family Medicine 07/01/17 documented as of this encounter
--- OUTSIDE RECORDS SUMMARY | 2023-01-22 21:55 | External Medical Summary ---
Author Name Unknown Address Unknown Organization [id number]:[facility] [place] [address] [facility] [place] [facility] [address] Laboratory Report Ordering Provider Test Date Status SHWETA REGALADO 01/07/2023 16:11:59 Final hCG can serve as a screening assay for . However, early may not give a positive hCG test result. In addition, some non- women may have a hCG result slightly higher than the reference limit. Careful interpretation of the hCG with clinical history is required to determine whether the patient may be .
Postmenopausal women have higher hCG than premenopausal women. The reference interval for non- premenopausal women is <= 1 mIU/mL, and for postmenopausal women is <= 7 mIU/mL. Observation Date Value Abnormality Reference (Units ) Status Choriogonadotropin.intact +Beta subunit [Units/volume] in Serum or Plasma 01/07/2023 16:11:59 <0.6 <=1.0 (mIU/mL) Final Performing Location [facility] [place] [address] [place] [facility] [address]
--- OUTSIDE RECORDS SUMMARY | 2023-01-22 21:55 | External Medical Summary ---
Author Name Unknown Address Unknown Organization [id number][place] [place] [address] [place] [address] Laboratory Report Ordering Provider Test Date Status SHWETA REGALADO 01/07/2023 16:11:59 Final Observation Date Value Abnormality Reference (Units ) Status BUN 01/07/2023 16:11:59 9 6-20 (mg/dL) Final Creatinine 01/07/2023 16:11:59 0.6 0.5-1.0 (mg/dL) Final Glomerular filtration rate/1.73 sq M.predicted [Volume Rate/Area] in Serum, Plasma or Blood by Creatinine-based formula (CKD-EPI) 01/07/2023 16:11:59 >90 >=60 (mL/min) Final eGFR is calculated based on the CKD-EPI 2020 equation SODIUM 01/07/2023 16:11:59 139 135-146 (m mol/L) Final Potassium 01/07/2023 16:11:59 4.2 3.5-5.1 (m mol/L) Final Cl 01/07/2023 16:11:59 100 98-107 (mm ol/L) Final CO2 01/07/2023 16:11:59 25 22-32 (mmo l/L) Final Anion gap 01/07/2023 16:11:59 14 7-15 (mmol /L) Final Glucose 01/07/2023 16:11:59 192 Above high normal 70 -120 (mg/dL) Final Albumin 01/07/2023 16:11:59 4.1 3.8-5.0 (g /dL) Final AST (Aspartate aminotransferase) 01/07/2023 16:11:59 19 10-35 (U/L) Fin al Alk Phos 01/07/2023 16:11:59 75 35-130 (U/ L) Final Bilirubin, Total 01/07/2023 16:11:59 0.3 <=1 .2 (mg/dL) Final Calcium 01/07/2023 16:11:59 9.6 8.4-10.2 ( mg/dL) Final Protein 01/07/2023 16:11:59 6.4 6.0-8.3 (g /dL) Final ALT (Alanine aminotransferase) 01/07/2023 16:11:59 23 10-35 (U/L) Carroll ornelas Performing Location [facility] [place] [facility][note 3] [address] [facility] [address]
--- OUTSIDE RECORDS SUMMARY | 2023-01-22 21:55 | External Medical Summary | Summary of Care ---
Author Name Unknown Organization [facility] Address [address] [place] [address] Phone [phone] Care Team Providers Care Executive Administrative Asst Name Role Phone Julian Lencho Primary Care Provider [phone] Encounter Details Date Type Department Care Team (Late st Contact Info) Description 01/07/2023 Orders Only Radiology, [address] [address] X-Ray Uterine bleeding* Allergies No known active allergiesdocumented as of [...] Active buPROPion XL (WELLBUTRIN XL) 300 MG [id number]:Recur rent major depressive disorder, in full remission [...] as of this encounter Plan of Treatment Upcoming Encounters Date Type Department Care Team ([facility] st Contact Info) Description 01/07/2023 3:50 PM EST Hospital Encounter Radiology, [place] [address] [place] [address] Arrived Scheduled Orders Name Type Priority Associated Diagnoses Orde r Schedule XR CHEST 2 VIEWS Medical Imaging Routine Uterine bleeding Ordered: 01/07/2023 Health Maintenance Due Date Last Done Comments [...] this encounter Medical Devices Implanted Type Area Ux Manager Device Identifier Shelf Expiration Date Model / Serial / Lot Cement Bone R 1112-140-01 - [id number] Implanted:Qty: 1 on 03/29/2015 by Laci Crystal MD at OR [facility] Right: Knee [employer] 06/25/2019 00-1112-14 0-01 / / Knee [employer] Ps Stb Bead 4 L - [id number] Implanted:Qty: 1 on 11/13/2016 by Laci Crystal MD at OR [facility] Left: Knee SUSAN : ORTHOPAEDICS 11/22/2019 [id number] / / [id number] Description: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
[2023-01-22] MEDS ORDERED: Nursing to Pharmacy Communication SCH ×2 (22:15→23:00)
[2023-01-22] MEDS: ACETAMINOPHEN 325 MG TAB PO PRN (22:23)
--- NOTE | 2023-01-22 22:36 | OB/GYN Consultation ---
Date of Consultation January 22, 2023 Assessment & Plan (1) Post surgical complication: Margarita is a 52-year-old mostly 2-week status post a total laparoscopic hysterectomy presents with acute postoperative bleeding as detailed per HPI. Patient is hemodynamically stable with a reasonable hemoglobin and hematocrit postsurgery. There is noted to be a hematoma in the pelvis. No clear active bleeding noted on CT scan. I discussed with Margarita that we would continue to monitor blood counts over the next 24 to 48 hours. If blood counts appear to be dropping significantly we will discuss an angiogram evaluation. Discussed possibility of CV IR embolization for confirmed active bleeding. Will continue all home medications as appropriate. All questions answered to the patient's satisfaction. Greater than 45 minutes was spent in review of history, review of imaging and discussion (2) Vaginal bleeding: (3) Hemoperitoneum: History of Present Illness Attending Physician: Jose L Burroughs MD History of Present Illness Margarita is a 52-year-old who presents to the emergency department with acute vaginal bleeding status post total laparoscopic hysterectomy on 01/09. Patient reports that she was getting into the shower when she noted signs of large clots about golf ball size with some bright red bleeding occurring with the clots. She reports passing multiple large clots with bright red bleeding being minimal. She reports some pelvic pressure. She denied any known causal event to the bleeding. Stat CT scan with contrast showed a 11 x 8 cm hematoma adjacent to the vaginal cuff and moderate hemoperitoneum otherwise. Hemoglobin/hematocrit noted at 11.6/37.2. Patient is hemodynamically stable with normal vitals. Allergies Allergy/AdvReac Type Severity Reaction Status Date / Time No Known Allergies Allergy Verified 01/22/23 17:35 Home Medications Medication Instructions Recorded Confirmed Type multivitamin (Multiple Vitamins 1 tab PO DAILY #30 tabs 07/31/18 01/22/23 Rx tablet) furosemide 20 mg tablet (Lasix) 20 mg PO BID PRN edema #180 tabs 10/27/20 01/22/23 Rx methocarbamol 500 mg tablet 500 mg PO BID PRN pain 30 days #60 08/14/21 01/22/23 Rx tabs ferrous sulfate 325 mg (65 mg 325 mg PO DAILY #90 tabs 11/27/21 01/22/23 Rx iron) tablet (iron) potassium chloride 8 mEq 8 meq PO QAM #90 tabs 11/27/21 01/22/23 Rx tablet,extended release (Klor-Con) dextroamphetamine-amphetamine ER 20 mg PO DAILY #30 caps 02/27/22 01/22/23 Rx 20 mg 24hr capsule,extend release (Adderall XR) omeprazole 40 mg capsule,delayed 40 mg PO HS #30 caps 06/25/22 01/22/23 Rx release valsartan 160 1 tab PO QAM #90 tabs 09/24/22 01/22/23 Rx mg-hydrochlorothiazide 25 mg tablet escitalopram oxalate 10 mg tablet 10 mg PO QAM #90 tabs 09/25/22 01/22/23 Rx (Lexapro) aspirin 81 mg tablet,delayed 81 mg PO DAILY 12/14/22 01/22/23 History release ondansetron HCl 4 mg tablet 4 mg PO Q8H PRN ibs #20 tabs 12/14/22 01/22/23 Rx pramipexole 0.5 mg tablet 0.5 mg PO TID #90 tabs 12/17/22 01/22/23 Rx bupropion HCl 300 mg 24 hr tablet, 300 mg PO QAM #30 tabs 01/09/23 01/22/23 Rx extended release (Wellbutrin XL) clonazepam 1 mg tablet (Klonopin) 1 mg PO TID #90 tabs 01/13/23 01/22/23 Rx hydrocodone 5 mg-acetaminophen 325 1 tab PO Q6H PRN pain #120 tabs 01/21/23 01/22/23 Rx mg tablet ibuprofen 200 mg tablet 600 mg PO DIRECTED PRN Pain 01/22/23 01/22/23 History Patient History Medical History (Updated 01/23/23 @ 08:54 by Jose L Burroughs MD) Hx of gastric ulcer Irritable bowel syndrome diarrhea History of COVID-19 01/2021 > symptoms at time: fatigue, cough, aches > resolved Herpes genitalia Umbilical hernia Osteoarthritis Chronic back pain GERD (gastroesophageal reflux disease) Anxiety Depression Postconcussion syndrome 2017 > Post-concussive syndrome with persistent difficulty with executive function > follows with [facility] neurology (last seen 03/13/21) Migraine Hypertension Restless legs syndrome Fibromuscular dysplasia of renal artery Surgical History (Updated 10/02/22 @ 12:21 by Yesica Hinds MD) S/P laparoscopic procedure x2 - reports laparoscopy for endo by Dr. Kovacs in , dx laparoscopy 09/2022 History of esophagogastroduodenoscopy (EGD) S/P endometrial ablation S/P wisdom tooth extraction Hx of colonoscopy History of bilateral tubal ligation History of section x3 1995,2002,2003 History of cystoscopy S/P renal artery angioplasty right History of kidney surgery renal artery bypass (left) 2000 History of tonsillectomy S/P total knee arthroplasty bilateral S/P dilatation and curettage Family History Mother Diabetes Anxiety Hypertension Deep vein thrombosis Father Hypertension Grandmother (Paternal) Colorectal cancer Other No family history of adverse response to anesthesia Denies family history of Ovarian cancer Breast cancer Uterine cancer Social History Smoking Status: Current every day smoker Tobacco Type: E-cigarettes / Vaping Second Hand Exposure: No; Do You Dip or Chew Tobacco: No; Hx Alcohol Use: No Hx Substance Use: No Preferred Language: Chadian Communication Ability: Effective Visual Impairment: No Limitations Patent Counsel Required: No Beliefs That Will Affect Care: None marital status: Current Living Situation: Spouse and Family current occupational status: employed How many Children do You have: 3 Other Information That Helps Us Care for You: No Feels Safe at Home: Yes during the past year weight has: increased > 10 lbs Assistive Devices: Glasses Physical Exam Physical Exam: Patient appears alert, oriented and with good energy. Skin has a normal appearance and no concerns based on general appearance for anemia. Constitutional: WD/WN, vitals as above Genitourinary: On speculum exam vaginal cuff was noted to be intact. No active bleeding appreciated. There was a roughly golf ball size clot noted to be in the posterior vaginal vault at the start of the exam. Cuff was mildly tender during exam. Results & Data Vital Signs (Past 12 Hours) Vital Signs Temp Pulse Pulse Resp BP BP Pulse Ox 01/22/23 21:16 36.8 C 84 20 146/90 H 01/22/23 20:32 86 16 168/84 H 96 01/22/23 15:35 88 16 150/90 H 94 01/22/23 14:32 36.8 C 88 18 193/120 H 97 O2 Del Method 01/22/23 21:16 Room Air 01/22/23 20:32 Room Air 01/22/23 15:35 Room Air 01/22/23 14:32 Room Air PG Care Time/CCT Total # of Minutes Spent Total Time Spent with Patient: Total time spent is greater than 50% in coordination of care (as documented) at patient's floor/unit and/or counseling patient: Coding Level of Care Code 10136 IN/OBS CONSULT LVL 3,45M Diagnoses Postoperative hemorrhage involving genitourinary system following genitourinary procedure N99.820 Surgical complication system/body Area: genitourinary Surgical complication type: hemorrhage Procedure type: genitourinary Vaginal bleeding N93.9 Hemoperitoneum K66.1 (1) Post surgical complication Surgical complication system/body Area: genitourinary Surgical complication type: hemorrhage Procedure type: genitourinary Qualified Code(s): N99.820 - Postprocedural hemorrhage of a genitourinary system organ or structure following a genitourinary system procedure
[2023-01-22] MEDS: DOCUSATE SODIUM 100 MG CAP PO SCH (22:44)
[2023-01-22] MEDS ORDERED: PRAMIPEXOLE DIHYDROCHLO 0.5 MG TAB PO ONE (23:15)
[2023-01-23] MEDS: ACETAMINOPHEN 325 MG TAB PO PRN ×2 (05:23→09:08)
[2023-01-23 06:53] LABS: Hematocrit (blood only) 31.9 % (37.0-47.0); Hemoglobin 9.8 g/dl (12.0-16.0)
[2023-01-23] MEDS ORDERED: LACTATED RINGER'S 1,000 ML IV SCH (08:00)
[2023-01-23] MEDS: DOCUSATE SODIUM 100 MG CAP PO SCH (08:59)
[2023-01-23] MEDS ORDERED: hydroCHLOROthiazide 25 MG TAB PO SCH (09:00)
[2023-01-23] MEDS ORDERED: buPROPion XL 300 MG TABCR PO SCH (09:00)
[2023-01-23] MEDS ORDERED: AMPHETAMINE ASP/SULF/DEXTRAMPH ER 20 MG CAP PO SCH (09:00)
[2023-01-23] MEDS ORDERED: PRAMIPEXOLE DIHYDROCHLO 0.5 MG TAB PO SCH ×2 (09:00→21:00)
[2023-01-23] MEDS ORDERED: ESCITALOPRAM OXALATE 10 MG TAB PO SCH (09:00)
[2023-01-23] MEDS ORDERED: VALSARTAN 80 MG TAB PO SCH (09:00)
--- NOTE | 2023-01-23 09:02 | Gynecologic Progress Note ---
Date of Service January 23, 2023 Assessment & Plan (1) Hemoperitoneum: Plan: Margarita is a 52-year-old with postoperative bleeding and hematoma as detailed per HPI. Hemoglobin and hematocrit have marginally decreased since initial evaluation in the ED. H&H decreased appears to be at least partially dilutional. Patient is hemodynamically stable and denying any concerns at present. No vaginal bleeding overnight. Will plan for repeat blood counts around 11 AM. Discussed possible repeat imaging if her blood counts continue to drop significantly. Discussed possible transfer for IR embolization if active bleeding is suspected. (2) Post surgical complication: (3) Vaginal bleeding: Admission and Anticipated Discharge Date Admission Date: January 22, 2023 Subjective Margarita is a 52-year-old with postoperative bleeding as detailed per consult note. Denying any vaginal bleeding overnight. no acute events overnight. Patient reporting some mild to moderate pelvic pressure but is otherwise doing well. Physical Exam Gastrointestinal (Abdomen): Percussion/Palpation: abdomen soft; abdomen nontender, no guarding and abdomen not rigid Results & Data Vital Signs (Past 12 Hours) Vital Signs Temp Pulse Resp BP Pulse Ox O2 Del Method 01/23/23 08:00 36.8 C 74 20 167/95 H 94 Room Air 01/23/23 05:15 36.8 C 82 16 155/72 H Room Air 01/23/23 01:32 36.7 C 75 18 143/75 H Room Air 01/22/23 21:30 36.8 C 85 20 146/90 H Room Air 01/22/23 21:16 36.8 C 84 20 146/90 H Room Air PG Care Time/CCT Total # of Minutes Spent Total Time Spent with Patient: Total time spent is greater than 50% in coordination of care (as documented) at patient's floor/unit and/or counseling patient: Coding Level of Care Code 95493 SUB INP/OBS CARE 2/35MIN Diagnoses Hemoperitoneum K66.1 Postoperative hemorrhage involving genitourinary system following genitourinary procedure N99.820 Procedure type: genitourinary Surgical complication system/body Area: genitourinary Surgical complication type: hemorrhage Vaginal bleeding N93.9 (2) Post surgical complication Procedure type: genitourinary Surgical complication system/body Area: genitourinary Surgical complication type: hemorrhage Qualified Code(s): N99.820 - Postprocedural hemorrhage of a genitourinary system organ or structure following a genitourinary system procedure
[2023-01-23 11:00] LABS: Hematocrit (blood only) 33.6 % (37.0-47.0); Hemoglobin 10.3 g/dl (12.0-16.0); Mean Corpuscular Hgb Conc 30.7 g/dL (32.0-36.0); Mean Corpuscular Volume 78.3 fL (80.0-100.0); Mean Platelet Volume 11.1 fL (9.4-12.4); Platelet Count 257 K/uL (130-400); RDW Coefficient of Variation 16.7 % (11.5-14.5); RDW Standard Deviation 47.1 fL (36.4-46.3); Red Blood Count 4.29 M/uL (4.20-5.40); White Blood Count 6.98 K/ul (4.8-10.8)
--- NOTE | 2023-01-23 12:22 | Gynecologic Progress Note ---
Date of Service January 23, 2023 Assessment & Plan (1) Hemoperitoneum: (2) Post surgical complication: Plan -Pt overall is feeling well, denies further bleeding through this AM. Repeat CBC at 11 was stable compared to h/h this AM and CBC from last evening. Suspect the initial slight decrease from ED is partially dilutional was noted in prior notes as pt was drinking fluids in the ER. Pt is hemodynamically stable and exam is benign. She strongly desires to go home and I think is stable to do so. Bleeding and activity precautions, would expect to have some light bleeding/discharge given recent postop state, size of hematoma as it resorbs/comes through the cuff moving forward. Pressure likely will remain with hematoma there but should also slowly improve as well. She will contact primary surgeon's office as postop visit was missed yesterday due to going to ER. Ample time given for questions, answered to apparent satisfaction Admission and Anticipated Discharge Date Admission Date: January 22, 2023 Subjective Met w/ pt earlier this AM and now. Has voided multiple times and had BM, no further bleeding. Denies lightheadedness/dizziness with ambulation. Pelvic pressure a little improved after BM. Would like to go home Physical Exam Gastrointestinal (Abdomen): abd soft, appropriately tender, ND. No rigidity, rebound, guarding. Incisions healing well Results & Data Vital Signs (Past 12 Hours) Vital Signs Temp Pulse Resp BP Pulse Ox O2 Del Method 01/23/23 08:00 98.2 F 74 20 167/95 H 94 Room Air 01/23/23 05:15 98.2 F 82 16 155/72 H Room Air 01/23/23 01:32 98.1 F 75 18 143/75 H Room Air PG Care Time/CCT Total # of Minutes Spent Total Time Spent with Patient: Total time spent is greater than 50% in coordination of care (as documented) at patient's floor/unit and/or counseling patient: Coding Level of Care Code 11810 SUB INP/OBS CARE 2/35MIN Diagnoses Hemoperitoneum K66.1 Postoperative hemorrhage involving genitourinary system following genitourinary procedure N99.820 Procedure type: genitourinary Surgical complication system/body Area: genitourinary Surgical complication type: hemorrhage (2) Post surgical complication Procedure type: genitourinary Surgical complication system/body Area: genitourinary Surgical complication type: hemorrhage Qualified Code(s): N99.820 - Postprocedural hemorrhage of a genitourinary system organ or structure following a genitourinary system procedure
--- NOTE | 2023-01-29 07:19 | Discharge Summary ---
Date of Service January 29, 2023 Hospital Course (1) Post surgical complication: (2) Vaginal bleeding: (3) Hemoperitoneum: Plan Margarita was admitted for observation secondary to postoperative bleeding. Please see notes for additional details. Patient discharged home in stable cond ition with stable hemoglobin/hematocrit. Vital stable and patient doing well. Patient will plan to follow-up with her [facility] surgeon for postoperative follow-up ongoing. Coding Level of Care Code 23276 IN/OBS DISCH 30 MIN/LESS Diagnoses Postoperative hemorrhage involving genitourinary system following genitourinary procedure N99.820 Procedure type: genitourinary Surgical complication system/body Area: genitourinary Surgical complication type: hemorrhage Vaginal bleeding N93.9 Hemoperitoneum K66.1
== END 2023-01-23 13:00 | disposition home or self-care (01) ==
LOC: ED 13:46 → 4E1 13:46
DX: Y83.8 Other surgical procedures as the cause of abnormal reaction of the patient, or of later complication, without mention of misadventure at the time of the procedure; F17.290 Nicotine dependence, other tobacco product, uncomplicated; K66.1 Hemoperitoneum; I10 Essential (primary) hypertension; Z79.899 Other long term (current) drug therapy; Z86.16 Personal history of COVID-19; Z90.710 Acquired absence of both cervix and uterus; N99.820 Postprocedural hemorrhage of a genitourinary system organ or structure following a genitourinary system procedure; Z79.82 Long term (current) use of aspirin